=== PATIENT | female | born 1995 | race Caucasian/White ===

== ENCOUNTER → 2018-02-05 | Outpatient (CLI) | payer OTHER ==
[~2018-02-05] MED LIST: OPTIRAY 320 IV PRN
--- NOTE | 2018-02-05 18:54 | DIAGNOSTIC IMAGING REPORT ---
ABDOMEN AND PELVIS CT WITH IV AND ORAL CONTRAST CT DOSE: 259.49 mGy.cm HISTORY: Acute left upper quadrant abdominal and pelvic pain LT UPPER QUAD PAIN TECHNIQUE: Multiaxial CT images of the abdomen and pelvis were performed following the use of intravenous and oral contrast. 94 no Optiray 320 IV contrast was utilized. A dose lowering technique was utilized adhering to the principles of ALARA. COMPARISON STUDY: None. FINDINGS: Lung bases appear generally clear. There is no pneumatosis or pneumoperitoneum identified. Imaged inferior cardiac chambers are unremarkable. The liver, gallbladder, spleen, pancreas and adrenal glands appear unremarkable. The kidneys, ureters and urinary bladder are within normal limits. Uterus and left adnexum are within normal limits. Ovoid cystic lesion of the right adnexum measures 2.4 x 1.7 cm with adjacent trace right adnexal free fluid. Aorta is normal in course and caliber. There is no bulky adenopathy identified. There is no bowel obstruction or focal bowel wall thickening identified. The appendix is not definitively seen. No secondary signs of acute appendicitis. Mildly prominent lymph nodes of the right lower quadrant mesentery are seen measuring up to 7 mm in short axis, likely reactive. Soft tissues are unremarkable. Bones appear intact. Mild levoscoliosis of the lumbar spine. Bone island of the right femoral head. IMPRESSION: 1. 2.4 cm cystic lesion of the right adnexum suggests dominant follicle with mild adjacent free pelvic fluid, likely physiologic. 2. Appendix not definitively seen. No secondary signs to suggest acute appendicitis. 3. Mildly prominent lymph nodes of the right lower quadrant mesentery, likely reactive. 4. No bowel obstruction or focal bowel wall thickening. Electronically signed by: Daniel Murrieta M.D. 02/05/2018 6:53 PM Dictated Date/Time: 02/05/2018 6:35 PM
== END | disposition home or self-care (01) ==
LOC: C.CTS 16:11
PROVIDERS: ATTEND Family Medicine
DX: R10.12 Left upper quadrant pain (principal); R10.2 Pelvic and perineal pain

== ENCOUNTER 2018-02-15 18:06 | Emergency (ER) | payer OTHER ==
[~2018-02-15] VITALS: Ht 149.9 cm; Wt 55.0 kg
[2018-02-15 18:10] VITALS: TEMP 36.7; Ht 149.9 cm; Wt 55.0 kg
[2018-02-15 18:45] LABS: BASO % 0.3 %; BASO ABS # 0.02 K/uL (0-0.2); EOS % 0.6 %; EOS ABS # 0.05 K/uL (0-0.5); HEMOGLOBIN 13.3 g/dL (12.0-16.0); IG# 0.01 K/uL (0.00-0.02); LYMPH % 42.5 %; MEAN CELL VOLUME 80.7 fL (80-100); MEAN CORPUSCULAR HEMOGLOBIN 27.5 pg (25-34); MEAN CORPUSCULAR HGB CONC 34.1 g/dl (32-36); MEAN PLATELET VOLUME 9.3 fL (7.4-10.4); MONO % 6.8 %; MONO ABS # 0.53 K/uL (0.11-0.59); NEUT % 49.7 %; NEUT ABS # 3.86 K/uL (1.4-6.5); PLATELET COUNT 280 K/uL (130-400); RED CELL DISTRIBUTION WIDTH CV 14.5 % (11.5-14.5); RED CELL DISTRIBUTION WIDTH SD 42.7 fL (36.4-46.3); WHITE BLOOD COUNT 7.77 K/uL (4.8-10.8)
--- NOTE | 2018-02-15 18:47 | EMERGENCY ROOM VISIT NOTE ---
History Report prepared by Janki: Aliza Estrada Under the Supervision of: Dr. Clint Singh D.O. First contact with patient: 18:20 Chief Complaint: ABDOMINAL PAIN Stated Complaint: PAIN IN LOWER ABDOMEN Nursing Triage Summary: patient c/o mid abdominal pain for 1 1/2 weeks. patient went to [facility]. CT done. CT showed ovarian cysts to right side. patient was told if pain persisted to come to ER. patient c/o sharp intermittent pain to mid abdomen. History of Present Illness The patient is a 23 year old female who presents to the Emergency Room with complaints of persistent pelvic pain that began about 2 weeks ago. She reports that 2 weeks ago she went to [facility], where she was diagnosed with a possible right ovarian cyst after a CT scan. The patient states that her pain comes in intermittent episodes that last about 10-15 minutes, noting she becomes nauseous and short of breath with the pain. She reports that she is now having about 2 episodes per day, noting her pain is worsened in the mornings. The patient denies any pain with urination, vaginal discharge, back pain, or ever being . She states a history of urinary tract infections, noting she does not have any UTI symptoms at this moment. The patient notes her last normal menstrual period was about 11 weeks ago. Source of History: patient Onset: about 2 weeks ago Position: pelvis Quality: other (pelvic pain) Timing: other (persistent episodes ) Associated Symptoms: + SOB, + nausea, No back pain Note: The patient denies any pain with urination or vaginal discharge. Review of Systems See HPI for pertinent positives & negatives. A total of 10 systems reviewed and were otherwise negative. Past Medical & Surgical Medical Problems: (1) UTI (urinary tract infection) Family History Patient reports no known family medical history. No pertinent family history. Social History Smoking Status: Never Smoker Smokeless Tobacco Use: No Alcohol Use: none Drug Use: none Marital Status: single Housing Status: lives with roommate Occupation Status: [employer] student Current/Historical Medications Scheduled Medroxyprogesterone Acetate (Depo-Provera), 1 DOSE INJ DIRECTED Sertraline (Zoloft), 100 MG PO HS Allergies Coded Allergies: No Known Allergies (Unverified , 02/15/18) Physical Exam Vital Signs Date Time Temp Pulse Resp B/P (MAP) Pulse Ox O2 Delivery O2 Flow Rate FiO2 02/15/18 20:36 78 119/64 99 02/15/18 19:42 88 114/64 100 Room Air 02/15/18 18:10 36.7 89 18 113/71 98 Room Air Physical Exam GENERAL: Patient is awake, alert, and in no acute distress. Patient is resting comfortably and showing no signs of anxiety EYES: The conjunctivae are clear. The pupils are round and reactive. EARS, NOSE, MOUTH AND THROAT: The nose is without any evidence of any deformity. Mucous membranes are moist tongue is midline NECK: The neck is nontender and supple. RESPIRATORY: Normal respiratory effort is noted there is no evidence of wheezing rhonchi or rales CARDIOVASCULAR: Regular rate and rhythm noted there no murmurs rubs or gallops normal S1 normal S2 GASTROINTESTINAL: The abdomen is soft. Bowel sounds are present in all quadrants. Abdomen is nontender MUSCULOSKELETAL/EXTREMITIES: There is no evidence of gross deformity full range of motion is noted in the hips and shoulders SKIN: There is no obvious evidence of any rash. There are no petechiae, pallor or cyanosis noted. NEUROLOGIC: Patient is awake alert and oriented x3 strength is symmetric patellar reflexes are 2+ bilaterally Medical Decision & Procedures ER Provider Diagnostic Interpretation: Radiology results as stated below per my review and radiologist interpretation: ABDOMEN 2VIEW W/PA CHEST RTN CLINICAL HISTORY: 23 years-old Female presenting with ABDOMINAL PAIN/GI. TECHNIQUE: PA view of the chest and supine and upright views of the abdomen were obtained. COMPARISON: CT from 02/05/2018. FINDINGS: Cardiomediastinal silhouette normal. Lungs and pleural spaces clear. Nonobstructive bowel gas pattern. No gross pneumoperitoneum. Allowing for bowel gas and stool, no calcifications to suggest nephrolithiasis. S-shaped scoliotic curvature of the spine. IMPRESSION: 1. No acute cardiopulmonary disease. 2. No radiographic evidence of acute intra-abdominal pathology. Electronically signed by: Germán Jeong M.D. 02/15/2018 7:54 PM Dictated Date/Time: 02/15/2018 7:53 PM PELVIC COMPLETE NON OB CLINICAL HISTORY: 23 years-old Female presenting with hx of ovarian cysts, lower pain, last menstrual period 11 weeks ago, slight pelvic discomfort. TECHNIQUE: Real-time grayscale and color and spectral Doppler ultrasound imaging of the pelvis was performed using a transabdominal probe. COMPARISON: CT from 02/05/2018. FINDINGS: Uterus: Normal. Anteverted. The uterus measures 6.9 x 3.6 x 4.0 cm. Endometrial stripe measures 4 mm in thickness. Endometrium normal-appearing. Cervix normal. Right adnexa: Right ovary contains a hypoechoic 2.3 x 2.0 x 1.2 cm lesion with internal septations, potentially suggestive of a hemorrhagic cyst. Right ovary measures 3.7 x 2.6 x 1.9 cm. Normal color Doppler flow and arterial and venous waveforms within the ovarian parenchyma. Left adnexa: Left ovary normal. Left ovary measures 1.6 x 1.4 x 2.0 cm. Normal color Doppler flow and arterial and venous waveforms within the ovarian parenchyma. Other: Trace free fluid, likely physiologic. IMPRESSION: 2.3 cm complex lesion in the right ovary most likely represents a hemorrhagic cyst. If there is clinical concern, pelvic ultrasound in 4-6 weeks could be obtained to ensure resolution. No ovarian torsion. Electronically signed by: Germán Jeong M.D. 02/15/2018 7:27 PM Dictated Date/Time: 02/15/2018 7:24 PM Laboratory Results 02/15/18 18:35 Red Blood Count 4.83, Mean Corpuscular Volume 80.7, Mean Corpuscular Hemoglobin 27.5, Mean Corpuscular Hemoglobin Concent 34.1, Mean Platelet Volume 9.3, Neutrophils (%) (Auto) 49.7, Lymphocytes (%) (Auto) 42.5, Monocytes (%) (Auto) 6.8, Eosinophils (%) (Auto) 0.6, Basophils (%) (Auto) 0.3, Neutrophils # (Auto) 3.86, Lymphocytes # (Auto) 3.30, Monocytes # (Auto) 0.53, Eosinophils # (Auto) 0.05, Basophils # (Auto) 0.02 02/15/18 18:35 Test 02/15/18 18:35 02/15/18 18:52 White Blood Count 7.77 K/uL (4.8-10.8) Red Blood Count 4.83 M/uL (4.2-5.4) Hemoglobin 13.3 g/dL (12.0-16.0) Hematocrit 39.0 % (37-47) Mean Corpuscular Volume 80.7 fL (80-100) Mean Corpuscular Hemoglobin 27.5 pg (25-34) Mean Corpuscular Hemoglobin Concent 34.1 g/dl (32-36) Platelet Count 280 K/uL (130-400) Mean Platelet Volume 9.3 fL (7.4-10.4) Neutrophils (%) (Auto) 49.7 % Lymphocytes (%) (Auto) 42.5 % Monocytes (%) (Auto) 6.8 % Eosinophils (%) (Auto) 0.6 % Basophils (%) (Auto) 0.3 % Neutrophils # (Auto) 3.86 K/uL (1.4-6.5) Lymphocytes # (Auto) 3.30 K/uL (1.2-3.4) Monocytes # (Auto) 0.53 K/uL (0.11-0.59) Eosinophils # (Auto) 0.05 K/uL (0-0.5) Basophils # (Auto) 0.02 K/uL (0-0.2) RDW Standard Deviation 42.7 fL (36.4-46.3) RDW Coefficient of Variation 14.5 % (11.5-14.5) Immature Granulocyte % (Auto) 0.1 % Immature Granulocyte # (Auto) 0.01 K/uL (0.00-0.02) Anion Gap 7.0 mmol/L (3-11) Est Creatinine Clear Calc Drug Dose 76.5 ml/min Estimated GFR () 108.9 Estimated GFR (Non- 93.9 BUN/Creatinine Ratio 14.8 (10-20) Calcium Level 8.6 mg/dl (8.5-10.1) Total Bilirubin 0.7 mg/dl (0.2-1) Direct Bilirubin 0.2 mg/dl (0-0.2) Aspartate Amino Transf (AST/SGOT) 19 U/L (15-37) Alanine Aminotransferase (ALT/SGPT) 41 U/L (12-78) Alkaline Phosphatase 101 U/L (45-117) Total Protein 7.3 gm/dl (6.4-8.2) Albumin 3.8 gm/dl (3.4-5.0) Lipase 124 U/L (73-393) Human Chorionic Gonadotropin, Qual NEG (NEG) Urine Color YELLOW Urine Appearance CLEAR (CLEAR) Urine pH 7.0 (4.5-7.5) Urine Specific [place] 1.019 (1.000-1.030) Urine Protein NEG (NEG) Urine Glucose (UA) NEG (NEG) Urine Ketones NEG (NEG) Urine Occult Blood NEG (NEG) Urine Nitrite NEG (NEG) Urine Bilirubin NEG (NEG) Urine Urobilinogen NEG (NEG) Urine Leukocyte Esterase TRACE (NEG) Urine WBC (Auto) 1-5 /hpf (0-5) Urine RBC (Auto) 0-4 /hpf (0-4) Urine Hyaline Casts (Auto) 1-5 /lpf (0-5) Urine Epithelial Cells (Auto) 10-20 /lpf (0-5) Urine Bacteria (Auto) NEG (NEG) Laboratory results per my review. ED Course 1820: The patient was evaluated in room A10. A complete history and physical examination were performed. 1951: I reevaluated the patient, who states that she is feeling significantly better. Discussed test findings and the treatment plan. She verbalized complete understanding and agreement. The patient is ready for discharge. Medical Decision Prior records/ancillary studies reviewed. Triage Nursing notes reviewed. Additional history obtained from previous medical records. The patient's history was concerning for abdominal pain. Differential diagnosis: Etiologies such as appendicitis, diverticulitis, PUD, biliary pathology, UTI, pancreatitis, obstruction, mesenteric ischemia, aortic pathology, infections, inflammatory bowel disease, renal colic, as well as others were entertained. The patient is a 23-year-old female who presented to the emergency department for an evaluation of lower abdominal pain and pelvic pain. The patient was seen earlier this month and had a CAT scan of the abdomen and pelvis. She was diagnosed with a ovarian cyst. The patient does not have pain at this time. Her history and physical exam do not appear to be consistent with appendicitis or ovarian torsion. I discussed the patient's laboratory and radiographic studies with her. I recommended that she follow-up with the on-call [facility] physician this week. I also recommended that she continue using Motrin and Tylenol as directed for pain and return to the emergency department immediately if symptoms change worsen or the need arises. Medication Reconcilliation Current Medication List: was personally reviewed by me Blood Pressure Screening Patient's blood pressure: Normal blood pressure Blood pressure disposition: Did not require urgent referral Impression Primary Impression: Pelvic pain Additional Impression: Right ovarian cyst Scribe Attestation The scribe's documentation has been prepared under my direction and personally reviewed by me in its entirety. I confirm that the note above accurately reflects all work, treatment, procedures, and medical decision making performed by me. Departure Information Dispostion Home / Self-Care Referrals No Doctor, Assigned (PCP) Forms HOME CARE DOCUMENTATION FORM, IMPORTANT VISIT INFORMATION Patient Instructions My [facility] Additional Instructions Continue using Motrin and Tylenol as directed for pain. Rest and avoid any strenuous activity. Schedule a follow-up appointment with the [employer] [employer] [facility] physician for soon as possible. Return to the emergency department immediately if symptoms change worsen or the need arises. Problem Qualifiers
[2018-02-15 19:05] LABS: ALBUMIN 3.8 gm/dl (3.4-5.0); CALCIUM 8.6 mg/dl (8.5-10.1); CREATININE 0.88 mg/dl (0.60-1.20); POTASSIUM 3.4 mmol/L (3.5-5.1)
[2018-02-15 19:07] LABS: TOTAL PROTEIN 7.3 gm/dl (6.4-8.2)
[2018-02-15] MEDS ORDERED: DPPRI400 INJ (19:10)
[2018-02-15] MEDS ORDERED: SERT-234 PO (19:10)
--- NOTE | 2018-02-15 19:29 | DIAGNOSTIC IMAGING REPORT ---
PELVIC COMPLETE NON OB CLINICAL HISTORY: 23 years-old Female presenting with hx of ovarian cysts, lower pain, last menstrual period 11 weeks ago, slight pelvic discomfort. TECHNIQUE: Real-time grayscale and color and spectral Doppler ultrasound imaging of the pelvis was performed using a transabdominal probe. COMPARISON: CT from 02/05/2018. FINDINGS: Uterus: Normal. Anteverted. The uterus measures 6.9 x 3.6 x 4.0 cm. Endometrial stripe measures 4 mm in thickness. Endometrium normal-appearing. Cervix normal. Right adnexa: Right ovary contains a hypoechoic 2.3 x 2.0 x 1.2 cm lesion with internal septations, potentially suggestive of a hemorrhagic cyst. Right ovary measures 3.7 x 2.6 x 1.9 cm. Normal color Doppler flow and arterial and venous waveforms within the ovarian parenchyma. Left adnexa: Left ovary normal. Left ovary measures 1.6 x 1.4 x 2.0 cm. Normal color Doppler flow and arterial and venous waveforms within the ovarian parenchyma. Other: Trace free fluid, likely physiologic. IMPRESSION: 2.3 cm complex lesion in the right ovary most likely represents a hemorrhagic cyst. If there is clinical concern, pelvic ultrasound in 4-6 weeks could be obtained to ensure resolution. No ovarian torsion. Electronically signed by: Germán Jeong M.D. 02/15/2018 7:27 PM Dictated Date/Time: 02/15/2018 7:24 PM
--- NOTE | 2018-02-15 19:55 | DIAGNOSTIC IMAGING REPORT ---
ABDOMEN 2VIEW W/PA CHEST RTN CLINICAL HISTORY: 23 years-old Female presenting with ABDOMINAL PAIN/GI. TECHNIQUE: PA view of the chest and supine and upright views of the abdomen were obtained. COMPARISON: CT from 02/05/2018. FINDINGS: Cardiomediastinal silhouette normal. Lungs and pleural spaces clear. Nonobstructive bowel gas pattern. No gross pneumoperitoneum. Allowing for bowel gas and stool, no calcifications to suggest nephrolithiasis. S-shaped scoliotic curvature of the spine. IMPRESSION: 1. No acute cardiopulmonary disease. 2. No radiographic evidence of acute intra-abdominal pathology. Electronically signed by: Germán Jeong M.D. 02/15/2018 7:54 PM Dictated Date/Time: 02/15/2018 7:53 PM
[2018-02-15 20:36] VITALS: BP 119/64; PULSE 78; O2SAT 99
== END 2018-02-15 20:37 | disposition home or self-care (01) ==
LOC: C.EDB 18:08 → C.EDA 20:37
DX: N83.201 Unspecified ovarian cyst, right side (principal); Z87.440 Personal history of urinary (tract) infections